=== PATIENT | female | born 1975 | race Hispanic/Latino ===

== ENCOUNTER 2019-07-27 14:43 | Inpatient (IN) ==
[2019-07-27] MEDS ORDERED: ZOFRAN IV ONE (15:41)
[2019-07-27] MEDS ORDERED: NS 1,000 ML IV ONE (15:41)
[2019-07-27 15:45] LABS: URINE SOURCE CLEAN CATCH
--- NOTE | 2019-07-27 15:46 | PROVIDER DOCUMENTATION ---
This chart was entered by Makayla Gauthier Scribe, acting as scribe for Hanny Coppola CRNP. HPI-Abdominal Pain/GI Problem - General Chief Complaint: Abdominal Pain Stated Complaint: ADB PAIN Time Seen by Provider: 07/27/19 14:48 Source: patient Allergies/Adverse Reactions: Patient Allergies Allergy/AdvReac Type Severity Reaction Status Date / Time Latex, Natural Rubber Allergy Mild HIVES Verified 07/27/19 15:38 Home Medications: Home Medication List Medication Instructions Recorded Confirmed Last Taken Type Amlodipine [Norvasc] 10 mg PO DAILY 01/04/19 07/27/19 Unknown History Ferrous Sulfate [Iron] 325 mg PO DAILY 01/04/19 07/27/19 Unknown History LISINOpril [Prinivil] 10 mg PO DAILY 01/04/19 07/27/19 Unknown History Levothyroxine [Synthroid] 150 mcg PO DAILY 01/04/19 07/27/19 Unknown History Lovastatin 20 mg PO HS 07/27/19 07/27/19 Unknown History - History of Present Illness-ABD Nature of Presenting Problems: Patient is a 44yo F who presents with complaints of sudden onset RLQ abdominal pain, nausea, and cold sweats that began this morning. States last BM was this morning and was normal. Denies fever, symptoms, diarrhea, flu-like symptoms, CP, SOB, or known/suspected exposure to COVID. Upon examination, patient appears to be in pain and is lying in the position. Abdominal Pain Onset Location: reports: RLQ Pain Radiation: reports: no radiation Quality of Pain: reports: sharp, throbbing Severity in ED: reports: moderate Onset/Duration: reports: abrupt, this morning Timing: reports: still present, constant, getting worse Activities at Onset: reports: light activity Exposure to sick contacts?: No Modifying Factors: improves with: nothing. worse with: movement, palpation Associated Symptoms: reports: fatigue, fever/chills (chills), nausea. denies: chest pain, cough, diarrhea, EENT symptoms, genitourinary problems, headaches, sinus congestion/drainage, shortness of breath, vomiting Last BM: this morning Dark Stools Present?: reports: none noticed Rectal Bleeding: reports: none # of Diarrhea Episodes: 0 Rectal Pain: reports: none # of Vomiting Episodes: 0 Emesis Description: reports: none Bruising or Bleeding Gums?: No Similar Symptoms Previously?: No Recently seen or treated by another doctor?: No Review of Systems - Adult - REVIEW OF SYSTEMS - ADULT Constitutional: reports: see HPI, chills. denies: fever Eyes: reports: no symptoms reported Ears, Nose, Mouth & Throat: denies: sinus problem, throat pain Cardiovascular: denies: chest pain, syncope Respiratory: denies: cough, shortness of breath Gastrointestinal: reports: see HPI, abdominal pain, nausea. denies: diarrhea, vomiting Genitourinary: denies: dysuria, frequency Musculoskeletal: reports: no symptoms reported Integumentary: reports: no symptoms reported Neurological: denies: dizziness/vertigo, headache/migraines Psychiatric: reports: no symptoms reported Endocrine: reports: no symptoms reported Past History - Adult - PAST MEDICAL HISTORY-ADULT Review of Records: reports: Nursing Assessment Review, Medications Reviewed, Social history reviewed & non-contributory. Major Childhood Illnesses: reports: denies history Cardiovascular: reports: HTN Respiratory: reports: denies history Gastrointestinal: reports: denies history Obstetrical/Gynecological: reports: denies history Genitourinary: reports: denies history Musculoskeletal: reports: denies history Neurological: reports: denies history Psychiatric: reports: denies history Endocrine/Immune: reports: thyroid disorder Other Conditions: reports: other (anemia) - IMMUNIZATION STATUS Childhood Immunizations: See Nurse Assessment Flu Vaccine: See Nurse Assessment - FAMILY HISTORY Family History: diabetes, CAD over 55 yo - SOCIAL HISTORY Smoking: cigarettes, less than 1 pack/day Provider spent 3-5 mins advising pt. on dangers of tobacco.: Discussed manners to quit use, and f/u contacts for add'l counseling. Substance Use: alcohol Alcohol Use Frequency: occasionally Number of drinks per typical drinking period:: 1 drink Living Situation: family Physical Exam-General - PHYSICAL EXAM-ADULT Initial Vital Signs Reviewed: Yes - CONSTITUTIONAL General Appearance: alert, moderate distress, other (appears to be in pain, lying in position) - EYES Eyes: PERRL/EOMI, pink conjunctivae - HEAD, EARS, NOSE, MOUTH & THROAT HENMT: normocephalic/atraumatic, moist mucous membranes. negative: angioedema - NECK Neck: non-tender, full range of motion, supple, normal inspection - RESPIRATORY Respiratory: chest non-tender, lungs clear, normal breath sounds, no pleuratic chest pain, no respiratory distress, no accessory muscle use. negative: crackles, rales, rhonchi, stridor, wheezing, retractions, splinting - CARDIOVASCULAR Cardiovascular: normal peripheral pulses, no gallop - GASTROINTESTINAL (ABDOMEN) Abdominal Exam: normal bowel sounds, soft, no pulsatile mass, guarding, tenderness (RLQ moderate), Rovsing's sign. negative: rigid, McBurney's point tenderness - LYMPHATIC Lymphatic: no adenopathy - MUSCULOSKELETAL Back Exam: normal inspection, no CVA tenderness Extremity: normal range of motion, non-tender, normal gait, normal inspection - SKIN Integumentary: normal color, warm/dry. negative: cyanosis, jaundice, mottled - NEUROLOGIC Neurologic: grossly normal. negative: aphasia, EOM palsy - PSYCHIATRIC Psych/Mental Status: normal mood/affect, normal thought content, normal thought process, oriented x 3 Progress - PLAN OF CARE/RESULTS Progress/Plan/Lab Results: Vital Signs - 8 hr 07/27/19 14:45 Temperature 97.7 F Orders Category Date Time Status ED: Urine Bedside NOW Care 07/27/19 14:51 Active Saline Loc DIRECTED Care 07/27/19 14:52 Active NPO Diet 07/27/19 14:52 Active AMYLASE [CHEM] Stat Lab 07/27/19 14:52 Uncollected CBC WITH ELECTRONIC DIFF [HEME] Stat Lab 07/27/19 14:52 Uncollected COMPREHENSIVE METABOLIC PANEL [CHEM] Stat Lab 07/27/19 14:52 Uncollected LIPASE [CHEM] Stat Lab 07/27/19 14:52 Uncollected URINALYSIS W/POSS RFLX CULT [URINALYSIS] Stat Lab 07/27/19 14:52 Uncollected 1706: Lab results, imaging results, plan of care, and need for admission/surgery discussed with patient who agrees with and verbalizes understanding. Reports pain has improved with Morphine. Continues to remain stable. Result Diagrams: 07/27/19 15:25 07/27/19 15:25 - REASSESSMENT Reassessment #1 Time Reassessed: 17:06 Status: other Reassessment Comment: STORE CASHIER at bedside discussing POC - CT/MRI 1 CT Study: Abdomen, Pelvis Impression: See EMR Report ([facility] - [address] [place] [address], [address], [place] [address] [facility] - [address] [place] [address] Department of Imaging Patient: HUMBLE LEYVA Date: 07/27/19#: [id number] : 1975ADM Status: REG [facility]#: [id number] Age/Sex: 44/FRoom/Bed: Loc: P.ED Ordering Physician: Hanny Coppola Family Physician: MEAGAN GALVEZ Reason for Procedure: RLQ abdominal pain; n/v ___ Signed EXAM: CT ABD/PELVIS W/IV CONT ONLY HISTORY: RLQ abdominal pain; n/v TECHNIQUE: CT abdomen and pelvis with intravenous contrast, but without oral contrast. COMPARISON: None. FINDINGS: There is a calcified granuloma in the left lower lobe. No calcified gallstones or adjacent inflammation. Normal liver, spleen, pancreas, adrenal glands, and kidneys. Normal aorta. The appendix is markedly dilated measuring 18 cm in maximum diameter. There are adjacent inflammatory changes. No free air. No abscess. Urinary bladder is only mildly distended. The uterus has been removed. There is a small amount of free fluid in the pelvis. There are several small left ovarian cysts. IMPRESSION: Acute appendicitis This report was discussed with Hanny Coppola in the [place] emergency room on 07/27/2019 at 5:00 PM and was readback. This exam was performed using automated exposure control, adjustment of mA or kV according to patient size, and/or use of iterative reconstruction technique. Electronically signed by Saul Goodrich 07/27/2019 5:03 PM 07/27/19 0044 Interpreting Physician: Saul Goodrich MD Dictated Date/Time: 07/27/19 8015 cc: Hanny Coppola; Meagan Galvez) - CONSULTS/PCP/HOSPITALIST Notification #1 *Consult/PCP/Hospitalist*: Dr. Goodrich, Radiologist Time Discussed: 17:00 Reason/Comments: CT results demonstrating acute appendicitis #2 Consult: Dr. Mills, Surgeon Time Discussed: 17:03 Reason/Comments: Acute appendicitis Consult Disposition: Admit (To Dr. Mills, transfer to ) Departure - Departure Date of Disposition Decision: 07/27/19 Time of Disposition Decision: 17:03 DIAGNOSIS: Nausea alone Acute appendicitis Qualifiers: Acute appendicitis type: unspecified acute appendicitis type Qualified Code(s): K35.80 - Unspecified acute appendicitis Leukocytosis, unspecified Qualifiers: Leukocytosis type: unspecified Qualified Code(s): D72.829 - Elevated white bloo d cell count, unspecified Abdominal pain Qualifiers: Abdominal location: right lower quadrant Qualified Code(s): R10.31 - Right lower quadrant pain Disposition: ADMITTED INPATIENT 09 Certified Medical Emergency: Emergent Condition: Stable - Critical Care Note This patient required my direct & personal management of CC.: No Attestation - Physician/ OLAMIDE Attestation Patient care was provided by Advanced Practice Provider:: Yes Advanced Practice Provider:: Hanny Coppola Advanced Practice Provider documentation review:: The Mid-level provider documentation, treatment plan and medical decision making was reviewed by the physician who agrees with all treatment and medical decision making by the P. The physician spent face to face time with patient:: No Advanced Practice Provider documentation review:: Supervising physician onsite and consulted in the evaluation and care of this patient. The physician did not have a face to face encounter with the patient. This chart was documented by the indicated scribmani, (Makayla Gauthier Scribe) and accurately reflects the services I performed and decisions made by me, Hanny Coppola CRNP, as attested by the provider's signature.
[2019-07-27 15:51] LABS: BILIRUBIN URINE NEGATIVE (NEGATIVE); BLOOD URINE NEGATIVE (NEGATIVE); COLOR YELLOW; GLUCOSE URINE NEGATIVE (NEGATIVE); KETONE URINE 40 mg/dL (NEGATIVE); LEUKOCYTES URINE NEGATIVE (NEGATIVE); NITRITE URINE NEGATIVE (NEGATIVE); PROTEIN URINE TRACE mg/dL (NEGATIVE); SP GRAVITY URINE 1.026; TURBIDITY URINE CLEAR (CLEAR); UROBILINOGEN URINE NORMAL (NORMAL)
[2019-07-27] MEDS ORDERED: MORPHINE IV ONE (15:55)
[2019-07-27 15:58] LABS: UR EPITHELIAL CELLS <10 /HPF (<10); URINE BACTERIA NEGATIVE /HPF; URINE RBC <10 /HPF (<10); URINE WBC <10 /HPF (<10)
[2019-07-27 16:00] LABS: URINE CASTS NONE SEEN; URINE CRYSTALS NONE SEEN; URINE SMALL ROUND CELLS NONE SEEN; URINE YEAST NONE SEEN
[2019-07-27 16:02] LABS: AGAP 14; ALBUMIN 4.7 g/dL (3.5-5.0); ALKALINE PHOSPHATASE 94 U/L (32-104); AMYLASE 56 U/L (20-200); BUN 12 mg/dL (8-22); CALCIUM 9.6 mg/dL (8.8-10.2); CHLORIDE 99 mmol/L (98-107); COSMO 272; CREATININE 0.5 mg/dL (0.5-0.9); ESTIMATED GFR > 60; GLUCOSE 106 mg/dL (70-104); GOT 58 U/L (10-30); GPT 125 U/L (10-36); LIPASE 17 U/L (13-60); POTASSIUM 3.7 mmol/L (3.5-5.1); SODIUM 136 mmol/L (136-145); TCO2 24 mmol/L (25-35); TOTAL PROTEIN 7.9 g/dL (6.3-8.3)
[2019-07-27 16:18] LABS: BASO# 0.02 X1000 (0.0-0.2); BASO% 0.1 % (0.0-0.8); EOS# 0.11 X1000 (0.0-0.7); EOS% 0.6 % (0.0-10.0); HEMATOCRIT 40.9 % (37.0-47.0); HEMOGLOBIN 14.2 g/dL (12.0-16.0); IMM GRAN# 0.07 X1000 (0.0-0.04); IMM GRAN% 0.4 % (0.0-0.5); LYMPH# 1.05 X1000 (1.2-3.4); LYMPH% 5.7 % (20.5-51.1); MCH 30.1 PG (27-31); MCHC 34.7 g/dL (33-37); MCV 86.7 FL (81-99); MONO# 0.83 X1000 (0.11-0.59); MONO% 4.5 % (1.7-9.3); MPV 11.2 FL (7.4-10.4); NEUT# 16.33 X1000 (1.4-6.5); NEUT% 88.7 % (42.2-75.2); PLT 164 X1000 (130-400); RBC 4.72 XMIL (4.2-5.4); RDW 13.4 % (11.5-14.5); WBC 18.41 X1000 (4.8-10.8)
[2019-07-27] MEDS ORDERED: ZOSYN 3.375 GM in NS 50 ML IV ONE (17:02)
--- NOTE | 2019-07-27 17:05 | Diag Imaging Result Doc PS360 ---
EXAM: CT ABD/PELVIS W/IV CONT ONLY HISTORY: RLQ abdominal pain; n/v TECHNIQUE: CT abdomen and pelvis with intravenous contrast, but without oral contrast. COMPARISON: None. FINDINGS: There is a calcified granuloma in the left lower lobe. No calcified gallstones or adjacent inflammation. Normal liver, spleen, pancreas, adrenal glands, and kidneys. Normal aorta. The appendix is markedly dilated measuring 18 cm in maximum diameter. There are adjacent inflammatory changes. No free air. No abscess. Urinary bladder is only mildly distended. The uterus has been removed. There is a small amount of free fluid in the pelvis. There are several small left ovarian cysts. IMPRESSION: Acute appendicitis This report was discussed with Hanny Coppola in the [place] emergency room on 07/27/2019 at 5:00 PM and was readback. This exam was performed using automated exposure control, adjustment of mA or kV according to patient size, and/or use of iterative reconstruction technique. Electronically signed by Saul Goodrich 07/27/2019 5:03 PM
[2019-07-27] MEDS ORDERED: SENSORCAINE 0.25%/EPI 1:200,000 ONE (17:55)
[2019-07-27] MEDS ORDERED: LR 1,000 ML ONE (17:55)
[2019-07-27] MEDS ORDERED: ROBINUL ONE (18:03)
[2019-07-27] MEDS ORDERED: XYLOCAINE-MPF 2% ONE ×2 (18:03→18:37)
[2019-07-27] MEDS ORDERED: ZEMURON ONE ×2 (18:03→18:30)
[2019-07-27] MEDS ORDERED: DIPRIVAN 1% ONE (18:05)
[2019-07-27] MEDS ORDERED: FENTANYL ONE (18:05)
[2019-07-27] MEDS ORDERED: NEOSTIGMINE ONE (18:07)
[2019-07-27] MEDS ORDERED: QUELICIN (DOSE) ONE (18:09)
[2019-07-27] MEDS ORDERED: DECADRON ONE (18:27)
[2019-07-27] MEDS ORDERED: ZOFRAN ONE (18:27)
[2019-07-27 18:48] LABS: URINE SOURCE CATH
[2019-07-27 18:51] LABS: BILIRUBIN URINE NEGATIVE (NEGATIVE); BLOOD URINE NEGATIVE (NEGATIVE); COLOR YELLOW; GLUCOSE URINE NEGATIVE (NEGATIVE); KETONE URINE 20 mg/dL (NEGATIVE); LEUKOCYTES URINE NEGATIVE (NEGATIVE); NITRITE URINE NEGATIVE (NEGATIVE); PH URINE 6.5; PROTEIN URINE TRACE mg/dL (NEGATIVE); TURBIDITY URINE CLEAR (CLEAR); UROBILINOGEN URINE NORMAL (NORMAL)
[2019-07-27 18:53] LABS: UR EPITHELIAL CELLS <10 /HPF (<10); URINE BACTERIA NEGATIVE /HPF; URINE RBC <10 /HPF (<10); URINE WBC <10 /HPF (<10)
[2019-07-27] MEDS ORDERED: ZOFRAN IV PRN (19:47)
[2019-07-27] MEDS: DILAUDID ONE ×3 (20:00→20:19)
[2019-07-27] MEDS: NORCO-5 PO PRN (23:42)
[2019-07-28 04:42] VITALS: BP 106/61
--- NOTE | 2019-07-28 05:26 | OPERATIVE NOTE ---
PROCEDURE DATE: 07/27/2019 PREOPERATIVE DIAGNOSIS: Acute appendicitis. POSTOP DIAGNOSIS: Acute appendicitis. PROCEDURE: Laparoscopic appendectomy. SURGEON: Sree Mills MD. MANUFACTURING SPECIALIST: Dr. Hernandez. Dr. Hernandez was present for the entirety of the case. He helped in identification of the anatomy, safely stapling across the appendix and facilitated exposure for closure. ANESTHESIA: General endotracheal. INTRAOPERATIVE FINDINGS: Enlarged appendix. COMPLICATIONS: None at time of dictation. ESTIMATED BLOOD LOSS: 10 mL. SPECIMEN REMOVED: Appendix. BRIEF HISTORY: A 44-year-old female presenting with classic symptoms for appendicitis. She had a CT scan confirming it. It was felt that she would benefit from appendectomy. The risks, benefits, and alternatives were discussed the patient. Risks including, but not limited to bleeding, infection, risk of anesthesia, risk of injury to other structures, risk of leak discussed. All questions answered. DESCRIPTION OF PROCEDURE: After informed consent was obtained, patient brought to the operative theatre, transferred to the operative table, placed supine position. General endotracheal anesthesia was then performed without complication. A formal time-out was then performed confirming patient and procedure. All in agreement that time, attention was given to the abdomen. An infraumbilical incision was made through which using the Optiview technique we inserted initially a 5 mm trocar then transitioned it to a 12. We then placed 2 more trocars, 1 in the right upper quadrant, one in the left lower quadrant. We then identified the appendix. It was very enlarged and difficult to grasp. We were able to elevate it. We made a hole in the mesoappendix at the base of the appendix and fired 2 stapler loads across it to get to the base of the appendix. We then fired a stapler load across the appendix at the junction with the cecum with good results. There was no drainage of succus, no stool. No injury to the small bowel. We placed into an EndoCatch and brought it out through the infraumbilical incision which had to be slightly enlarged to accommodate the size of the appendix. We then irrigated out the abdomen until the suction fluid was clear. We then closed the infraumbilical incision with 0 Vicryl in a [id number] stitch. We then closed all skin incisions with 4-0 Monocryl. The patient tolerated the procedure well. She was transferred back to the recovery room. We will watch her overnight. cc: Sree Mills MD
--- NOTE | 2019-07-28 05:54 | GENERAL SURGERY PROGRESS NOTE ---
DATE: 07/28/2019 The patient seems to be doing well. She is not hurting as much. I think from a clinical point of view, she could be discharged home after her appendectomy. cc: Sree Mills MD
[2019-07-28] MEDS: NORCO-5 PO PRN (06:13)
[2019-07-28] MEDS ORDERED: PERIDEX MT SCH (09:00)
== END 2019-07-28 09:03 | disposition home or self-care (01) | DRG 343 ==
LOC: P.ED 14:43 → OPS 17:53 → 4N 18:06
PROVIDERS: ADMIT Surgery; ATTEND Surgery